=== PATIENT | male | born 1965 | race Caucasian/White ===

== ENCOUNTER 2024-06-22 05:28 | Inpatient (IN) | payer MEDICAID, OTHER ==
[2024-06-22 06:14] LABS: Appearance,Urine Clear (Clear); Bilirubin,Urine Negative (Negative); Blood,Urine Negative (Negative); Color,Urine Light Yellow; Glucose,Urine (UA) Negative (Negative); Ketones,Urine Negative (Negative); Leukocyte Esterase,Urine Negative (Negative); Nitrite,Urine Negative (Negative); Protein,Urine Negative (Negative); Specific Gravity,Urine 1.013 (1.001-1.035); Urobilinogen,Urine <2.0 mg/dL (<2.0)
--- NOTE | 2024-06-22 06:17 | ED ---
Psych HPI - General Chief Complaint: Psychiatric Symptoms Stated Complaint: Mental Health Time Seen by Provider: 06/22/24 05:59 Source: patient, RN notes reviewed Mode of arrival: ambulatory Limitations: no limitations - History of Present Illness Initial Comments: This is a 58-year-old male who presents to the emergency department for psychiatric evaluation. Patient reports suicidal ideations with a plan to overdose on his Seroquel. Patient states that he has been feeling this way for the last week. States that this is related to being homeless. He was discharged from [facility] health unit yesterday after being admitted for 4 days. States that he did not feel like he was ready to be discharged. He was discharged to a homeless retirement in [place], however he states that he did not feel comfortable there. He was then wandering around all night and slept in a dumpster before coming here for evaluation. Denies any homicidal i deations. Denies any auditory/visual hallucinations. MD Complaint: suicidal ideation, feels depressed - Related Data Home Medications Medication Instructions Recorded Confirmed Albuterol Sulfate [Albuterol 2 puff INHALATION RT-Q4H PRN 06/22/24 06/22/24 Sulfate Hfa] Budesonide/Formoterol Fumarate 2 puff INHALATION RT-BID 06/22/24 06/22/24 [Symbicort 160-4.5 Mcg Inhaler] Ipratropium [place] [Atrovent Hfa] 2 puff INHALATION RT-QID 06/22/24 06/22/24 Montelukast [Singulair] 10 mg PO HS 06/22/24 06/22/24 QUEtiapine [SEROquel] 400 mg PO HS 06/22/24 06/22/24 Allergies Allergy/AdvReac Type Severity Reaction Status Date / Time sulfamethoxazole Allergy Rash/Hives Verified 06/22/24 13:43 [From Bactrim] trimethoprim [From Bactrim] Allergy Rash/Hives Verified 06/22/24 13:43 Review of Systems ROS Statement: Those systems with pertinent positive or pertinent negative responses have been documented in the HPI. ROS Other: All systems not noted in ROS Statement are negative. Past Medical History Past Medical History: COPD History of Any Multi-Drug Resistant Organisms: None Reported Past Surgical History: No Surgical Hx Reported Past Psychological History: Anxiety, Bipolar, Depression Smoking Status: Current every day smoker Past Alcohol Use History: None Reported Past Drug Use History: None Reported General Exam Limitations: no limitations General appearance: alert, in no apparent distress Head exam: Present: atraumatic, normocephalic, normal inspection Respiratory exam: Present: normal lung sounds bilaterally. Absent: respiratory distress, wheezes, rales, rhonchi, stridor Cardiovascular Exam: Present: regular rate, normal rhythm Neurological exam: Present: alert, oriented X3, CN II-XII intact Psychiatric exam: Present: depressed, suicidal ideation. Absent: homicidal ideation Skin exam: Present: warm, dry, intact, normal color. Absent: rash Course Vital Signs 06/22/24 06/22/24 05:31 12:00 Temperature 98.7 F 97.9 F Pulse Rate 101 H 100 Respiratory 18 18 Rate Blood Pressure 110/68 117/87 O2 Sat by Pulse 98 98 Oximetry Medical Decision Making - Medical Decision Making This is a 58-year-old male who presents to the emergency department for psychiatric evaluation. Was pt. sent in by a medical professional or institution? @ -No Did you speak to anyone other than the patient for history? @ -No Did you review nursing and triage notes? @ -Yes, and I agree, it is accurate with regards to the patient's symptoms. Were old charts reviewed? @ -No Differential Diagnosis? @ -Differential Mental Health Depression, anxiety, bipolar, psychosis, schizophrenia, borderline personality, situational depression, adjustment disorder, behavioral disorder, brain tumor, malingering, substance abuse, encephalopathy, medication reaction, dementia, hypothyroidism, degenerative neurologic disorder, lupus.... This is not meant to be all-inclusive list EKG interpreted by me (3pts min.)? @ -Not obtained X-rays interpreted by me (1pt min.)? @ -Not obtained CT interpreted by me (1pt min.)? @ -Not obtained U/S interpreted by me (1pt. min.)? @ -Not obtained What testing was considered but not performed? (CT, X-rays, U/S, labs)? Why? @ -None What meds were considered but not given? Why? @ -None Did you discuss the management of the patient with other professionals? @ -Yes, Lloyd with EPS, who advised that the patient will be admitted to for further psychiatric care. Did you reconcile home meds? @ -No Was smoking cessation discussed for >3mins.? @ -No Was critical care preformed (if so, how long)? @ -No Were there social determinants of health that impacted care today? How? (Homelessness, low income, unemployed, alcoholism, drug addiction, transportation, low edu. Level, literacy, decrease access to med. care, long-term, rehab)? @ -Homelessness, contributing to his mental health problems Was there de-escalation of care discussed even if they declined? (Discuss DNR or withdrawal of care, Hospice)? @ -No What co-morbidities impacted this encounter? (DM, HTN, Smoking, COPD, CAD, Cancer, CVA, Hep., AIDS, mental health diagnosis, sleep apnea, morbid obesity)? @ -Mental health diagnosis Was patient admitted / discharged? @ -Admitted. Patient's BAT was 0.0 and he was cleared for EPS evaluation. Urinalysis negative for signs of infection. UDS positive for tricyclic antidepressants. EPS evaluated the patient and advised that he meets criteria for inpatient psychiatric hospitalization due to active suicidal ideations with a plan and lack of support. Patient admitted to 3 . on a voluntary basis. Return precautions reviewed in depth, the patient is instructed to return to the emergency department with any new, worsening, or concerning symptoms. Patient verbalized understanding. Undiagnosed new problem with uncertain prognosis? @ -None Drug Therapy requiring intensive monitoring for toxicity (Heparin, Nitro, Insulin, Cardizem)? @ -None Were any procedures done? @ -None Diagnosis/symptom? @ -Suicidal ideations Acute, or Chronic, or Acute on Chronic? @ -Acute Uncomplicated (without systemic symptoms) or Complicated (systemic symptoms)? @ -Uncomplicated Side effects of treatment? @ -None Exacerbation, Progression, or Severe Exacerbation] @ -Not applicable Poses a threat to life or bodily function? @ -Yes, can lead to - Lab Data Lab Results 06/22/24 06/22/24 Range/Units 06:07 11:32 Urine Color Light Yellow Urine Appearance Clear (Clear) Urine pH 7.0 (5.0-8.0) Ur Specific [place] 1.013 (1.001-1.035) Urine Protein Negative (Negative) Urine Glucose (UA) Negative (Negative) Urine Ketones Negative (Negative) Urine Blood Negative (Negative) Urine Nitrite Negative (Negative) Urine Bilirubin Negative (Negative) Urine Urobilinogen <2.0 (<2.0) mg/dL Ur Leukocyte Esterase Negative (Negative) Urine Opiates Screen Not Detected (NotDetected) Ur Oxycodone Screen Not Detected (NotDetected) Urine Methadone Screen Not Detected (NotDetected) Ur Barbiturates Screen Not Detected (NotDetected) U Tricyclic Antidepress Detected H (NotDetected) Ur Phencyclidine Scrn Not Detected (NotDetected) Ur Amphetamines Screen Not Detected (NotDetected) U Methamphetamines Scrn Not Detected (NotDetected) U Benzodiazepines Scrn Not Detected (NotDetected) Urine Cocaine Screen Not Detected (NotDetected) U Marijuana (THC) Screen Not Detected (NotDetected) SARS-CoV-2 (PCR) Not Detected (Not Detectd) Disposition Clinical Impression: Suicidal ideation Disposition: TRANSFER TO PSYCH HOSP/UNIT
[2024-06-22 08:43] LABS: Amphetamine Screen,Urine Not Detected (NotDetected); Barbiturate Screen,Urine Not Detected (NotDetected); Benzodiazepines Screen,Urine Not Detected (NotDetected); Cocaine Screen,Urine Not Detected (NotDetected); Methadone Screen, Urine Not Detected (NotDetected); Opiate Screen,Urine Not Detected (NotDetected); Oxycodone Screen, Urine Not Detected (NotDetected); Phencyclidine Screen,Urine Not Detected (NotDetected); Tricyclic Antidepressant,Urine Detected (NotDetected); Urn Cannabinoid Scrn Not Detected (NotDetected)
[2024-06-22] MEDS ORDERED: MAGNESIUM HYDROXIDE 2,400 MG/30 ML CUP PO PRN (13:49)
[2024-06-22] MEDS ORDERED: hydrOXYzine HCL 50 MG/ML 1 ML VIAL IM PRN (13:49)
[2024-06-22] MEDS ORDERED: IBUPROFEN 600 MG TAB PO PRN (13:49)
[2024-06-22] MEDS ORDERED: hydrOXYzine HCL 25 MG TAB PO PRN (13:49)
[2024-06-22] MEDS ORDERED: ACETAMINOPHEN TAB 325 MG TAB PO PRN (13:49)
[2024-06-22] MEDS ORDERED: OLANZapine 10 MG VIAL IM PRN (13:49)
[2024-06-22] MEDS ORDERED: OLANZapine 10 MG TAB PO PRN (13:49)
[2024-06-22] MEDS ORDERED: MAG HYDROX/AL HYDROX/SIMETH 355 ML BOTTLE PO PRN (13:49)
[2024-06-22] MEDS: ALBUTEROL INHALER 60 PUFF/8 GM INHALER (MHU) INHALATION PRN (15:30)
[2024-06-22] MEDS: NICOTINE 14MG/24HR PATCH TRANSDERM SCH (16:12)
--- NOTE | 2024-06-22 17:32 | P.MDCNMH ---
<Jass Mitchell - Last Filed: 06/22/24 17:29> History of Present Illness H&P Date: 06/22/24 Patient is a 58-year-old male with history of COPD being seen for suicidal ideation. Patient states he had suicidal ideation with plans to overdose on his Seroquel. He says this is all due to being homeless. He was recently discharged from [facility] after being there for for 4 days. Denies any auditory/visual hallucinations. Patient has medical history significant to COPD. Patient is a current 20 pack year smoker. During interview he denies any suicidal or homicidal ideation. Denies any fever, chills, chest pain, shortness of breath, increased cough, nausea, vomiting, diarrhea, urinary symptoms. Pertinent positives and negatives as discussed above, a complete review of systems was performed and all other systems are negative. Vitals: Signs Reviewed Physical Exam: General: nontoxic, no distress, appears at stated age Derm: warm, dry, intact Head: atraumatic, normocephalic, symmetric Eyes: EOMI, anicteric sclera Mouth: no lip lesion, mucus membranes moist Cardiovascular: S1 S2 reg, no murmur, rubs, or gallops Lungs: CTA bilateral, rhonchi, no rales, no accessory muscle use Abdominal: soft, non-tender to palpataion, no appreciable organomegaly Extremities: no gross muscle atrophy, no edema, no contractures Neuro: Alert, Oriented, CNII-XII grossly intact, gait normal Psych: well appearing, appropriate affect Data Received Today: Pertinent Labs: CBC and BMP pending Imaging: N/A Assessment and Plan: Patient is a 58-year-old male being seen for suicidal ideation. #. COPD not in acute exacerbation Not on home oxygen, currently breathing on room air Continue with Symbicort inhaler 2 puffs inhalation BID Singulair 10 mg PO at bedtime Resume home ipratropium nebulizer #. Nicotine dependence Nicotine patch #. Suicidal ideation #. Depression/anxiety #. Bipolar Defer management to primary psychiatry service. DVT ppx: Ambulation Code status: Full code Jass Mitchell MD PGY-1 IM Dictation was produced using [employer] dictation software. please excuse any grammatical, word or spelling errors. Past Medical History Past Medical History: COPD History of Any Multi-Drug Resistant Organisms: None Reported Past Surgical History: No Surgical Hx Reported Past Anesthesia/Blood Transfusion Reactions: No Reported Reaction Smoking Status: Current every day smoker Medications and Allergies Home Medications Medication Instructions Recorded Confirmed Type Albuterol Sulfate [Albuterol 2 puff INHALATION RT-Q4H PRN 06/22/24 06/22/24 History Sulfate Hfa] Budesonide/Formoterol Fumarate 2 puff INHALATION RT-BID 06/22/24 06/22/24 History [Symbicort 160-4.5 Mcg Inhaler] Ipratropium [place] [Atrovent Hfa] 2 puff INHALATION RT-QID 06/22/24 06/22/24 History Montelukast [Singulair] 10 mg PO HS 06/22/24 06/22/24 History QUEtiapine [SEROquel] 400 mg PO HS 06/22/24 06/22/24 History Allergies Allergy/AdvReac Type Severity Reaction Status Date / Time sulfamethoxazole Allergy Rash/Hives Verified 06/22/24 15:03 [From Bactrim] trimethoprim [From Bactrim] Allergy Rash/Hives Verified 06/22/24 15:03 Physical Exam Vitals: Vital Signs Temp Pulse Pulse Resp BP BP Pulse Ox 06/22/24 14:54 98.2 F 86 18 116/68 99 06/22/24 12:00 97.9 F 100 18 117/87 98 06/22/24 05:31 98.7 F 101 H 18 110/68 98 Intake and Output 06/22/24 06/22/24 06/22/24 06:59 14:59 22:59 Other: Weight 63.503 kg 64 kg Cranial Nerve Examination - Cranial Nerves Cranial Nerve II- Optic: Intact Cranial Nerve III- Oculomotor: Intact Cranial Nerve IV- Trochlear: Intact Cranial Nerve V- Trigeminal: Intact Cranial Nerve - Abducens: Intact Cranial Nerve VII- Facial: Intact Cranial Nerve VIII- Auditory: Intact Cranial Nerve IX- Glossopharyngeal: Intact Cranial Nerve X- Vagus: Intact Cranial Nerve XI- Accessory: Intact Cranial Nerve XII- Hypoglossal: Intact Results Labs: Abnormal Lab Results - Last 24 Hours (Table) 06/22/24 Range/Units 06:07 U Tricyclic Antidepress Detected H (NotDetected) <Sawana,Rio S - Last Filed: 06/22/24 17:50> History of Present Illness I have seen and evaluated the patient today. Discussed with the resident and agree with the residents finding and plan as documented in the resident's note. Changes highlighted in blue font. Physical Exam Vitals: Vital Signs Temp Pulse Pulse Resp BP BP Pulse Ox 06/22/24 14:54 98.2 F 86 18 116/68 99 06/22/24 12:00 97.9 F 100 18 117/87 98 06/22/24 05:31 98.7 F 101 H 18 110/68 98 Intake and Output 06/22/24 06/22/24 06/22/24 06:59 14:59 22:59 Other: Weight 63.503 kg 64 kg Results Labs: Abnormal Lab Results - Last 24 Hours (Table) 06/22/24 Range/Units 06:07 U Tricyclic Antidepress Detected H (NotDetected)
[2024-06-22] MEDS: IPRATROPIUM 0.5 MG/2.5 ML NEBU INHALATION SCH (18:21)
[2024-06-22] MEDS: QUEtiapine 400 MG TAB PO SCH (20:25)
[2024-06-22] MEDS: MONTELUKAST 10 MG TAB PO SCH (20:25)
[2024-06-22] MEDS: SYMBICORT 160-4.5 MCG INHALER (MHU) INHALATION SCH (21:09)
[2024-06-23] MEDS: TIOTROPIUM 2.5 MCG INHALER (MHU) INHALATION SCH (08:30)
[2024-06-23 08:51] LABS: Basophils # (A) 0.07 10*3/uL (0.00-0.10); Eosinophils # (A) 0.53 10*3/uL (0.04-0.35); Eosinophils % (A) 7.8 %; HCT 45.3 % (39.6-50.0); HGB 15.2 g/dL (13.0-17.0); Lymphocytes # (A) 1.89 10*3/uL (0.90-5.00); MCH 31.1 pg (27.0-32.0); MCHC 33.6 g/dL (32.0-37.0); MCV 92.6 fL (80.0-97.0); Mean Platelet Volume 9.1 fL (9.5-12.2); Monocytes # (A) 0.92 10*3/uL (0.20-1.00); Monocytes % (A) 13.6 %; Neutrophils % (A) 48.9 %; Platelet Count 245 10*3/uL (140-440); RBC 4.89 10*6/uL (4.40-5.60); RDW 12.6 % (11.5-14.5); WBC 6.76 10*3/uL (4.50-10.00)
[2024-06-23 09:15] LABS: ALT 27 U/L (4-49); AST 29 U/L (17-59); African American GFR (CKD) >90 (>60 ml/min/1.73 sqM); Albumin 4.3 g/dL (3.5-5.0); Alkaline Phosphatase 90 U/L (38-126); Anion Gap 10 mmol/L; Blood Urea Nitrogen 18 mg/dL (9-20); Calcium 9.7 mg/dL (8.4-10.2); Carbon Dioxide 28 mmol/L (22-30); Chloride 100 mmol/L (98-107); Glucose 124 mg/dL (74-99); Magnesium 1.8 mg/dL (1.6-2.3); Non-African American GFR(CKD) >90 (>60 ml/min/1.73 sqM); Potassium 4.2 mmol/L (3.5-5.1); Sodium 138 mmol/L (137-145); Total Bilirubin 0.6 mg/dL (0.2-1.3)
--- NOTE | 2024-06-23 09:51 | P.HP ---
Psychiatric H&P - . H&P Date: 06/23/24 History & Physical: Allergies Allergy/AdvReac Type Severity Reaction Status Date / Time sulfamethoxazole Allergy Rash/Hives Verified 06/22/24 15:03 [From Bactrim] trimethoprim [From Bactrim] Allergy Rash/Hives Verified 06/22/24 15:03 Vital Signs Temp 97.7 F 06/23/24 09:00 Pulse 87 06/23/24 09:00 Resp 16 06/23/24 09:00 BP 112/73 06/23/24 09:00 Pulse Ox 99 06/23/24 09:00 FiO2 Intake & Output 06/22/24 06/23/24 06/23/24 18:59 06:59 18:59 Weight 64 kg Laboratory Last Values WBC 6.76 10*3/uL (4.50-10.00) 06/23/24 08:22 RBC 4.89 10*6/uL (4.40-5.60) 06/23/24 08:22 Hgb 15.2 g/dL (13.0-17.0) 06/23/24 08:22 Hct 45.3 % (39.6-50.0) 06/23/24 08:22 MCV 92.6 fL (80.0-97.0) 06/23/24 08:22 MCH 31.1 pg (27.0-32.0) 06/23/24 08:22 MCHC 33.6 g/dL (32.0-37.0) 06/23/24 08:22 Plt Count 245 10*3/uL (140-440) 06/23/24 08:22 MPV 9.1 fL (9.5-12.2) L 06/23/24 08:22 Immature Gran % (Auto) 0.7 % 06/23/24 08:22 Neutrophils % 48.9 % 06/23/24 08:22 Lymphocytes % 28.0 % 06/23/24 08:22 Monocytes % 13.6 % 06/23/24 08:22 Eosinophils % 7.8 % 06/23/24 08:22 Basophils % 1.0 % 06/23/24 08:22 Immature Gran # 0.05 10*3/uL (0.00-0.04) H 06/23/24 08:22 Neutrophils # 3.30 10*3/uL (1.80-7.70) 06/23/24 08:22 Lymphocytes # 1.89 10*3/uL (0.90-5.00) 06/23/24 08:22 Monocytes # 0.92 10*3/uL (0.20-1.00) 06/23/24 08:22 Eosinophils # 0.53 10*3/uL (0.04-0.35) H 06/23/24 08:22 Basophils # 0.07 10*3/uL (0.00-0.10) 06/23/24 08:22 Sodium 138 mmol/L (137-145) 06/23/24 08:22 Potassium 4.2 mmol/L (3.5-5.1) 06/23/24 08:22 Chloride 100 mmol/L (98-107) 06/23/24 08:22 Carbon Dioxide 28 mmol/L (22-30) 06/23/24 08:22 Anion Gap 10 mmol/L 06/23/24 08:22 BUN 18 mg/dL (9-20) 06/23/24 08:22 Creatinine 0.85 mg/dL (0.66-1.25) 06/23/24 08:22 Est GFR (CKD-EPI)AfAm >90 (>60 ml/min/1.73 sqM) 06/23/24 08:22 Est GFR (CKD-EPI)NonAf >90 (>60 ml/min/1.73 sqM) 06/23/24 08:22 Glucose 124 mg/dL (74-99) H 06/23/24 08:22 Calcium 9.7 mg/dL (8.4-10.2) 06/23/24 08:22 Magnesium 1.8 mg/dL (1.6-2.3) 06/23/24 08:22 Total Bilirubin 0.6 mg/dL (0.2-1.3) 06/23/24 08:22 AST 29 U/L (17-59) 06/23/24 08:22 ALT 27 U/L (4-49) 06/23/24 08:22 Alkaline Phosphatase 90 U/L (38-126) 06/23/24 08:22 Total Protein 7.0 g/dL (6.3-8.2) 06/23/24 08:22 Albumin 4.3 g/dL (3.5-5.0) 06/23/24 08:22 Urine Color Light Yellow 06/22/24 06:07 Urine Appearance Clear (Clear) 06/22/24 06:07 Urine pH 7.0 (5.0-8.0) 06/22/24 06:07 Ur Specific [place] 1.013 (1.001-1.035) 06/22/24 06:07 Urine Protein Negative (Negative) 06/22/24 06:07 Urine Glucose (UA) Negative (Negative) 06/22/24 06:07 Urine Ketones Negative (Negative) 06/22/24 06:07 Urine Blood Negative (Negative) 06/22/24 06:07 Urine Nitrite Negative (Negative) 06/22/24 06:07 Urine Bilirubin Negative (Negative) 06/22/24 06:07 Urine Urobilinogen <2.0 mg/dL (<2.0) 06/22/24 06:07 Ur Leukocyte Esterase Negative (Negative) 06/22/24 06:07 Urine Opiates Screen Not Detected (NotDetected) 06/22/24 06:07 Ur Oxycodone Screen Not Detected (NotDetected) 06/22/24 06:07 Urine Methadone Screen Not Detected (NotDetected) 06/22/24 06:07 Ur Barbiturates Screen Not Detected (NotDetected) 06/22/24 06:07 U Tricyclic Antidepress Detected (NotDetected) H 06/22/24 06:07 Ur Phencyclidine Scrn Not Detected (NotDetected) 06/22/24 06:07 Ur Amphetamines Screen Not Detected (NotDetected) 06/22/24 06:07 U Methamphetamines Scrn Not Detected (NotDetected) 06/22/24 06:07 U Benzodiazepines Scrn Not Detected (NotDetected) 06/22/24 06:07 Urine Cocaine Screen Not Detected (NotDetected) 06/22/24 06:07 U Marijuana (THC) Screen Not Detected (NotDetected) 06/22/24 06:07 SARS-CoV-2 (PCR) Not Detected (Not Detectd) 06/22/24 11:32 06/23/24 09:34 IDENTIFYING DATA: Patient is a 58-year-old male currently homeless 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 HPI: Patient presented to the hospital stating in the emergency room that he was suicidal. The patient was recently discharged from [facility] where he was there for 4 days. They transported him to the homeless skilled nursing here and he did not feel safe and left. He notes that he has been living in a dumpster. Patient notes that he has a history of bipolar disorder. He notes when he is manic he has elevated energy, works more, sleeps last, and has pressured speech. He is vague about whether he becomes depressed afterwards and how many times he has manic episodes. Currently he notes that his depression is well and his anxiety is 0. He notes that he sleeps roughly 7 hours a night with the Seroquel. He notes that his energy is elevated. He states that his appetite and concentration is normal. Patient denies any feelings of helplessness, hopelessness or worthlessness. He denies any crying or guilt or shame. Currently he denies any suicidal thoughts or homicidal thoughts. He denies any access to guns. He did present with pressured speech review of psychiatric systems was negative for OCD, PTSD, anxiety disorders or psychosis. PAST PSYCHIATRIC HISTORY: Patient has a history of Bipolar disorder. Patient is currently on Seroquel 400 mg at night. He has past trials of Tegretol, lithium and Celexa. The patient has had 6 hospitalizations in his life most recently [place] 4 days ago. Patient follows up with [facility] in [place]. The patient notes 2 prior suicide attempts. Patient denies any physical, verbal or sexual abuse growing up. He notes that he was in detention for stalking his ex- but denies any history of violence. PMH: COPD Hand surgery ALLERGIES: Bactrim-hives CHEMICAL DEPENDENCY HISTORY: Tobacco-half a pack daily Alcohol-12 years of sobriety FAMILY PSYCHIATRIC/SUBSTANCE USE HISTORY: Father with bipolar. He has a brother he is schizophrenic and another sister who is bipolar. Multiple family members suffer from alcohol use disorder. SOCIAL HISTORY: Patient was born and raised in [place] he describes his childhood as "exciting". He notes that he completed the 12th grade with average grades. He has 1 past marriage and 1 child who is autistic from that marriage. He notes that he is currently homeless and working odd jobs. He has applied for disability. He notes that he is spiritual. He denies any service. MENTAL STATUS EXAM: General Appearance: Patient appears to be his stated age is alert, directable, and attempts to cooperate. Patient appears to have fair hygiene and grooming. Behavior: Patient is seated without any agitated behavior. Slightly hyper Speech: Patient's speech is fluent and pressured. Mood/Affect: Patient reports their mood is hypomanic, affect is congruent and constricted. Suicidality/Homicidality: Patient denies having any homicidal ideation intent or plan. Denies any suicidal ideations intent or plan Perceptions: Patient denies any visual hallucinations and denies any auditory hallucinations Though content/process: There is no evidence of any delusional thought content and thought process is linear and goal-directed. Memory and concentration: AOX3, grossly intact for the purposes of this session. Can spell "WORLD" backwards Judgment and insight: Fair/Fair STRENGTHS/WEAKNESSES: strength is that patient is resilient. Weakness is that patient has poor judgment and is impulsive INTELLECT: Average Diagnosis: Bipolar disorder type I most recent episode hypomanic Assessment: Patient is presenting to the hospital had voiced suicidal thoughts. He is hypomanic and now denies any suicidal thoughts which makes him a risk due to mood swings and changes. Patient will be placed back on his home medications and observed for safety reasons. PLAN: -Patient is admitted under voluntary status to MHU for stabilization of psychiatric symptoms and safety. Patient has signed adult voluntary form and medication consent and is placed in patient's chart. -Medications : Restart Seroquel 400 mg take 1 tablet by mouth at bedtime for bipolar disorder -Ativan and Haldol PRN for agitation/aggression -Patient was informed of the risks, benefits and side effects of the medication and patient verbally consented to taking the medications. Patient signed med consent form and was placed in chart. -Internal Medicine consult to perform medical evaluation and physical. -NRT -nicotine patch -SW on board for discharge planning. Encourage patient to participate in groups to work on coping skills.
[2024-06-23 16:43] LABS: Chol/HDL Ratio 2.59 Ratio; LDL Cholesterol,Calculated 103.3 mg/dL (0.0-131.0); VLDL Calculation 10.98 mg/dL (5.00-40.00)
--- NOTE | 2024-06-24 12:08 | P.PN ---
Progress Note - Text Progress Note Date: 06/24/24 Interval history: Patient was seen in the [facility] and was directable and agreeable to speak with insurance underwriter sales. He reports feeling well today, expressing no concerns. He admits to this hospitalization being a place to sleep and eat, stating his ultimate goal is [place] go [place] be with his ex- and son who he has been in contact with during this hospitalization. He is social with peers, and sleeping well. At this time patient denies any suicidal or homicidal ideations intent or plan. Denies any auditory or visual hallucinations. Patient denies any side effects from the medications and has been compliant with meds. Mental status exam: General Appearance: Patient appears to be stated age is alert, directable, and cooperative. He has fair grooming and hygiene Behavior: No agitated behavior. Patient is calm and directable Speech: Patient's speech is fluent and nonpressured. Mood/Affect: Mood is improving mildly, affect is congruent and reactive Suicidality/Homicidality: Patient denies having any suicidal or homicidal ideation intent or plan. Perceptions: Patient denies any auditory or visual hallucinations. Though content/process: There is no evidence of any delusional thought content and thought process is linear and goal-directed. Memory and concentration: AOX3, grossly intact for the purposes of this session Judgment and insight: improving mildly Assessment/Plan: Continue with current diagnosis. Patient continues to meet criteria for inpatient psychiatric admission for symptom stabilization and safety. Patient will be maintained on current psychotropic medication regimen. Monitor for medication compliance and for any psychotropic medication side effects. Will continue to monitor ongoing response to treatment. Encouraged participation in milieu.
[2024-06-25 09:30] VITALS: RESP 16
--- NOTE | 2024-06-25 12:17 | P.PN ---
Progress Note - Text Progress Note Date: 06/25/24 Interval history: Patient was seen in the and was directable and agreeable to speak with story writer. He continues to state he feels well, expressing no concerns today. He states having a psychiatrist in [place] and that he is hopeful to get a ride up there upon discharge. He has spoken to his ex and she is agreeable with him returning home with her. At this time patient denies any suicidal or homicidal ideations intent or plan. Denies any auditory or visual hallucinations. Patient denies any side effects from the medications and has been compliant with meds. Mental status exam: General Appearance: Patient appears to be stated age is alert, directable, and cooperative. Behavior: No agitated behavior. Patient is calm and directable Speech: Patient's speech is fluent and nonpressured. Mood/Affect: Mood is improving mildly, affect is congruent and full range Suicidality/Homicidality: Patient denies having any suicidal or homicidal ideation intent or plan. Perceptions: Patient denies any auditory or visual hallucinations. Though content/process: There is no evidence of any delusional thought content and thought process is linear and goal-directed. Memory and concentration: AOX3, grossly intact for the purposes of this session Judgment and insight: improving mildly Assessment/Plan: Continue with current diagnosis. Patient continues to meet criteria for inpatient psychiatric admission for symptom stabilization and safety. Patient will be maintained on current psychotropic medication regimen. Monitor for medication compliance and for any psychotropic medication side effects. Will continue to monitor ongoing response to treatment. Encouraged participation in milieu.
[2024-06-26 08:21] VITALS: BP 130/75; PULSE 72; TEMP 97.8
--- NOTE | 2024-06-26 12:43 | P.DS ---
Providers Date of admission: 06/22/24 13:17 Expected date of discharge: 06/26/24 Attending physician: Sampson Ellis MD Consults: 06/22/24 13:49 Consult Physician Routine Consulting Provider: Xavier Physician Consult Reason/Comments: H&P and medical Do you want consulting provider notified?: Yes Primary care physician: Stated None Hospital Course: Admission HPI: Admission note was completed by Dr. Hanna: "IDENTIFYING DATA: Patient is a 58-year-old male currently homeless from [place] and works odd jobs. HPI: Patient presented to the hospital stating in the emergency room that he was suicidal. The patient was recently discharged [facility] where he was there for 4 days. They [facility] the [facility] here and he did not feel safe and left. He notes that he has been living in a dumpster. Patient notes that he has a history of bipolar disorder. He notes when he is manic he has elevated energy, works more, sleeps last, and has pressured speech. He is vague about whether he becomes depressed afterwards and how many times he has manic episodes. Currently he notes that his depression is well and his anxiety is 0. He notes that he sleeps roughly 7 hours a night with the Seroquel. He notes that his energy is elevated. He states that his appetite and concentration is normal. Patient denies any feelings of helplessness, ho pelessness or worthlessness. He denies any crying or guilt or shame. Currently he denies any suicidal thoughts or homicidal thoughts. He denies any access to guns. He did present with pressured speech review of psychiatric systems was negative for OCD, PTSD, anxiety disorders or psychosis. PAST PSYCHIATRIC HISTORY: Patient has a history of Bipolar disorder. Patient is currently on Seroquel 400 mg at night. He has past trials of Tegretol, lithium and Celexa. The patient has had 6 hospitalizations in his life most recently [place] 4 days ago. Patient follows up with [facility] in [place]. The patient notes 2 prior suicide attempts. Patient denies any physical, verbal or sexual abuse growing up. He notes that he was in detention for stalking his ex- but denies any history of violence. PMH: COPD Hand surgery ALLERGIES: Bactrim-hives CHEMICAL DEPENDENCY HISTORY: Tobacco-half a pack daily Alcohol-12 years of sobriety FAMILY PSYCHIATRIC/SUBSTANCE USE HISTORY: Father with bipolar. He has a brother he is schizophrenic and another sister who is bipolar. Multiple family members suffer from alcohol use disorder. SOCIAL HISTORY: Patient was born and raised in [place] he describes his childhood as "exciting". He notes that he completed the 12th grade with average grades. He has 1 past marriage and 1 child who is autistic from that marriage. He notes that he is currently homeless and working odd jobs. He has applied for disability. He notes that he is spiritual. He denies any service. MENTAL STATUS EXAM: General Appearance: Patient appears to be his stated age is alert, directable, and attempts to cooperate. Patient appears to have fair hygiene and grooming. Behavior: Patient is seated without any agitated behavior. Slightly hyper Speech: Patient's speech is fluent and pressured. Mood/Affect: Patient reports their mood is hypomanic, affect is congruent and constricted. Suicidality/Homicidality: Patient denies having any homicidal ideation intent or plan. Denies any suicidal ideations intent or plan Perceptions: Patient denies any visual hallucinations and denies any auditory hallucinations Though content/process: There is no evidence of any delusional thought content and thought process is linear and goal-directed. Memory and concentration: AOX3, grossly intact for the purposes of this session. Can spell "WORLD" backwards Judgment and insight: Fair/Fair STRENGTHS/WEAKNESSES: strength is that patient is resilient. Weakness is that patient has poor judgment and is impulsive INTELLECT: Average Diagnosis: Bipolar disorder type I most recent episode hypomanic Assessment: Patient is presenting to the hospital had voiced suicidal thoughts. He is hypomanic and now denies any suicidal thoughts which makes him a risk due to mood swings and changes. Patient will be placed back on his home medications and observed for safety reasons. PLAN: -Patient is admitted under voluntary status to MHU for stabilization of psychiatric symptoms and safety. Patient has signed adult voluntary form and medication consent and is placed in patient's chart. -Medications : Restart Seroquel 400 mg take 1 tablet by mouth at bedtime for bipolar disorder -Ativan and Haldol PRN for agitation/aggression -Patient was informed of the risks, benefits and side effects of the medication and patient verbally consented to taking the medications. Patient signed med consent form and was placed in chart. -Internal Medicine consult to perform medical evaluation and physical. -NRT -nicotine patch -SW on board for discharge planning. Encourage patient to participate in groups to work on coping skills." Hospital course: Upon admission to the unit patient was directable and agreeable to commence treatment and signed adult voluntary form. Patient got along well with other patients on the unit and followed unit protocol. Patient was compliant with the medications and denied any side effects throughout hospital course. Patient was restarted on Seroquel 400 mg QHS. Patient spoke of his stressors and engaged in therapy both group and individual. Patient was also seen by medical team for history and physical exam. Throughout the course of the hospitalization patient gradually improved with regards to mood, anxiety, sleep and returned back to their baseline level of functioning. On the day of discharge patient denied any suicidal or homicidal ideation, intent or plan denied any auditory or visual hallucinations. Patient endorsed wanting to live for his health and family. The patient denied any access to guns or weapons. Patient denied any paranoia and did not endorse any delusions. Patient has a history of alcoholism but reports he has been sober for 12 years. He was counseled on abstaining from all substances including alcohol and marijuana. Patient will continue to attend AA meetings in the community to help maintain his sobriety. Patient was also counseled on the medications and need for regular compliance and was encouraged to follow-up with their outpatient appointment for mental health and also for primary care. Prior to discharge a family meeting will be arranged by social work professor to answer any questions and ensure safety upon discharge. Today he reports he is feeling "good", has positive thoughts, and has a good appetite. He is future oriented and goal-directed. Mental status exam: General Appearance: Patient appears to be stated age, unshaven tall slender male, wearing eyeglasses and clean casual attire, adequate hygiene and grooming Behavior: Patient is calmly seated without any agitated behavior. No abnormal movements. Speech: Patient's speech is fluent and non-pressured. Mood/Affect: Patient reports their mood is "good", affect is congruent and euthymic. Suicidality/Homicidality: Patient denies having any suicidal or homicidal ideation intent or plan. Perceptions: Patient denies any auditory or visual hallucinations. Though content/process: There is no evidence of any delusional thought content and thought process is linear, future-oriented and goal-directed. Memory and concentration: AOX3, grossly intact for the purposes of this session. Can spell "WORLD" backwards correctly. Judgment and insight: improved with good prognosis Impression: Bipolar I disorder, most recent episode hypomanic Nicotine dependence/Tobacco use disorder Alcohol use disorder, in sustained remission Plan: -Continue with discharge today as patient has improved and stabilized psychiatrically and is not currently an imminent threat to himself and/or others. Patient will remain at chronically elevated risk for harm to self and/or others due to his impulsivity and polysubstance abuse. -Continue medications: Seroquel 400 mg QHS for mood stabilization -Patient states he has enough refills from his primary care physician and does not need refills at this time. -Patient was counseled on the need for medication compliance and appropriate follow-up at mental health and also primary care for medical issues. Patient verbalized understanding and agreed. -Social work to arrange for and conduct family meeting to ensure safety upon discharge and answer any questions/concerns. Social work also to arrange for patients follow up appointments for psychiatric care along with follow up with primary care provider. -Patient counseled on abstaining from recreational drugs and marijuana and alcohol. Was informed/educated on the adverse effects on their physical and mental health. Patient verbally agreed and understood. Patient was offered nicotine replacement patches for cessation however declined at this time. -Patient was instructed to return to the hospital or seek immediate medical care if their psychiatric or medical symptoms do worsen or reoccur. Laboratory Results WBC 6.76 10*3/uL (4.50-10.00) 06/23/24 08:22 RBC 4.89 10*6/uL (4.40-5.60) 06/23/24 08:22 Hgb 15.2 g/dL (13.0-17.0) 06/23/24 08:22 Hct 45.3 % (39.6-50.0) 06/23/24 08:22 MCV 92.6 fL (80.0-97.0) 06/23/24 08:22 MCH 31.1 pg (27.0-32.0) 06/23/24 08:22 MCHC 33.6 g/dL (32.0-37.0) 06/23/24 08:22 Plt Count 245 10*3/uL (140-440) 06/23/24 08:22 MPV 9.1 fL (9.5-12.2) L 06/23/24 08:22 Immature Gran % (Auto) 0.7 % 06/23/24 08:22 Neutrophils % 48.9 % 06/23/24 08:22 Lymphocytes % 28.0 % 06/23/24 08:22 Monocytes % 13.6 % 06/23/24 08:22 Eosinophils % 7.8 % 06/23/24 08:22 Basophils % 1.0 % 06/23/24 08:22 Immature Gran # 0.05 10*3/uL (0.00-0.04) H 06/23/24 08:22 Neutrophils # 3.30 10*3/uL (1.80-7.70) 06/23/24 08:22 Lymphocytes # 1.89 10*3/uL (0.90-5.00) 06/23/24 08:22 Monocytes # 0.92 10*3/uL (0.20-1.00) 06/23/24 08:22 Eosinophils # 0.53 10*3/uL (0.04-0.35) H 06/23/24 08:22 Basophils # 0.07 10*3/uL (0.00-0.10) 06/23/24 08:22 Sodium 138 mmol/L (137-145) 06/23/24 08:22 Potassium 4.2 mmol/L (3.5-5.1) 06/23/24 08:22 Chloride 100 mmol/L (98-107) 06/23/24 08:22 Carbon Dioxide 28 mmol/L (22-30) 06/23/24 08:22 Anion Gap 10 mmol/L 06/23/24 08:22 BUN 18 mg/dL (9-20) 06/23/24 08:22 Creatinine 0.85 mg/dL (0.66-1.25) 06/23/24 08:22 Est GFR (CKD-EPI)AfAm >90 (>60 ml/min/1.73 sqM) 06/23/24 08:22 Est GFR (CKD-EPI)NonAf >90 (>60 ml/min/1.73 sqM) 06/23/24 08:22 Glucose 124 mg/dL (74-99) H 06/23/24 08:[address] Glu mg/dL 114 mg/dL 06/23/24 08:22 Hemoglobin A1c 5.6 % (<=6.0) 06/23/24 08:22 Calcium 9.7 mg/dL (8.4-10.2) 06/23/24 08:22 Magnesium 1.8 mg/dL (1.6-2.3) 06/23/24 08:22 Total Bilirubin 0.6 mg/dL (0.2-1.3) 06/23/24 08:22 AST 29 U/L (17-59) 06/23/24 08:22 ALT 27 U/L (4-49) 06/23/24 08:22 Alkaline Phosphatase 90 U/L (38-126) 06/23/24 08:22 Total Protein 7.0 g/dL (6.3-8.2) 06/23/24 08:22 Albumin 4.3 g/dL (3.5-5.0) 06/23/24 08:22 Triglycerides 54.90 mg/dL (0.00-149.00) 06/23/24 08:22 Cholesterol 186.00 mg/dL (0.00-200.00) 06/23/24 08:22 LDL Cholesterol, Calc 103.3 mg/dL (0.0-131.0) 06/23/24 08:22 VLDL Cholesterol, Calc 10.98 mg/dL (5.00-40.00) 06/23/24 08:22 HDL Cholesterol 71.70 mg/dL (40.00-60.00) H 06/23/24 08:22 Cholesterol/HDL Ratio 2.59 Ratio 06/23/24 08:22 TSH 8.280 mIU/L (0.465-4.680) H 06/23/24 08:22 Free T4 0.91 ng/dL (0.80-1.80) 06/23/24 08:22 Urine Color Light Yellow 06/22/24 06:07 Urine Appearance Clear (Clear) 06/22/24 06:07 Urine pH 7.0 (5.0-8.0) 06/22/24 06:07 Ur Specific [place] 1.013 (1.001-1.035) 06/22/24 06:07 Urine Protein Negative (Negative) 06/22/24 06:07 Urine Glucose (UA) Negative (Negative) 06/22/24 06:07 Urine Ketones Negative (Negative) 06/22/24 06:07 Urine Blood Negative (Negative) 06/22/24 06:07 Urine Nitrite Negative (Negative) 06/22/24 06:07 Urine Bilirubin Negative (Negative) 06/22/24 06:07 Urine Urobilinogen <2.0 mg/dL (<2.0) 06/22/24 06:07 Ur Leukocyte Esterase Negative (Negative) 06/22/24 06:07 Urine Opiates Screen Not Detected (NotDetected) 06/22/24 06:07 Ur Oxycodone Screen Not Detected (NotDetected) 06/22/24 06:07 Urine Methadone Screen Not Detected (NotDetected) 06/22/24 06:07 Ur Barbiturates Screen Not Detected (NotDetected) 06/22/24 06:07 U Tricyclic Antidepress Detected (NotDetected) H 06/22/24 06:07 Ur Phencyclidine Scrn Not Detected (NotDetected) 06/22/24 06:07 Ur Amphetamines Screen Not Detected (NotDetected) 06/22/24 06:07 U Methamphetamines Scrn Not Detected (NotDetected) 06/22/24 06:07 U Benzodiazepines Scrn Not Detected (NotDetected) 06/22/24 06:07 Urine Cocaine Screen Not Detected (NotDetected) 06/22/24 06:07 U Marijuana (THC) Screen Not Detected (NotDetected) 06/22/24 06:07 SARS-CoV-2 (PCR) Not Detected (Not Detectd) 06/22/24 11:32 Vital Signs (72 hours) 06/23/24 06/24/24 06/24/24 20:45 08:26 21:00 Temperature 97.8 F 97.8 F 97.9 F Pulse Rate [ 80 99 79 Left Sitting] Pulse Rate [ Right Pulse Oximetery] Respiratory 16 16 18 Rate Blood Pressure [Left Arm Standing] Blood Pressure 136/78 126/80 126/78 [Right Arm Sitting] O2 Sat by Pulse 96 97 97 Oximetry 06/25/24 06/25/24 06/26/24 09:00 21:23 08:21 Temperature 97.6 F 97.6 F 97.8 F Pulse Rate [ 57 L 68 Left Sitting] Pulse Rate [ 72 Right Pulse Oximetery] Respiratory 16 16 Rate Blood Pressure 130/75 [Left Arm Standing] Blood Pressure 119/79 137/86 [Right Arm Sitting] O2 Sat by Pulse 96 96 97 Oximetry Patient Condition at Discharge: Good Plan - Discharge Summary New Discharge Prescriptions: Continue QUEtiapine [SEROquel] 400 mg PO HS Montelukast [Singulair] 10 mg PO HS Budesonide/Formoterol Fumarate [Symbicort 160-4.5 Mcg Inhaler] 2 puff INHALATION RT-BID Albuterol Sulfate [Albuterol Sulfate Hfa] 2 puff INHALATION RT-Q4H PRN PRN Reason: Shortness Of Breath Ipratropium Zebulon [Atrovent Hfa] 2 puff INHALATION RT-QID Discharge Medication List Albuterol Sulfate [Albuterol Sulfate Hfa] 2 puff INHALATION RT-Q4H PRN 06/22/24 [History] Budesonide/Formoterol Fumarate [Symbicort 160-4.5 Mcg Inhaler] 2 puff INHALATION RT-BID 06/22/24 [History] Ipratropium Zebulon [Atrovent Hfa] 2 puff INHALATION RT-QID 06/22/24 [History] Montelukast [Singulair] 10 mg PO HS 06/22/24 [History] QUEtiapine [SEROquel] 400 mg PO HS 06/22/24 [History] Follow up Appointment(s)/Referral(s): None,Stated [Primary Care Provider] - 1-2 days Activity/Diet/Wound Care/Special Instructions: Avoid the use of street drugs and alcohol. Take all medications as prescribed. When you are in need of refills on your medications, please contact your medical provider and/or outpatient psychiatrist/provider to have this done. Please go to your scheduled outpatient appointment for aftercare treatment. If symptoms return or become worse, call the crisis line at and/or go to the nearest emergency room for evaluation. National Suicide Hotline 9[address] [facility] confidentiality statement: "The information contained in this communication, including attachments, is confidential, may be privileged, and is intended only for the use of the named recipient(s). Unauthorized use, disclosure, forwarding or copying is strictly prohibited and may be unlawful. If you have received this communication in error, please notify me IMMEDIATELY at the phone number or pager listed above.
== END 2024-06-26 14:33 | disposition home or self-care (01) | DRG 753 ==
LOC: EC 05:28 → 3MHU 13:17
PROVIDERS: ADMIT Psychiatry & Neurology Psychiatry; ATTEND Psychiatry & Neurology Psychiatry
DX: F31.0 Bipolar disorder, current episode hypomanic (principal); Z59.01 Sheltered homelessness; F10.21 Alcohol dependence, in remission; R45.851 Suicidal ideations; J44.9 Chronic obstructive pulmonary disease, unspecified; F41.9 Anxiety disorder, unspecified; F17.210 Nicotine dependence, cigarettes, uncomplicated; Z79.51 Long term (current) use of inhaled steroids; Z79.899 Other long term (current) drug therapy; Z91.51 Personal history of suicidal behavior; Z88.2 Allergy status to sulfonamides
CPT/HCPCS: 80053; 80061; 80306; 81003; 82075; 83036; 83735; 84439; 84443; 85025; 87635; 94640; 99285